=== PATIENT | female | born 1995 | race Caucasian/White ===

== ENCOUNTER 2019-09-22 14:52 | Observation (INO) ==
--- NOTE | 2019-09-22 16:17 | XRay Report ---
RIGHT HAND 3 VIEWS HISTORY: Right hand pain. COMPARISON: None. FINDINGS: There is no fracture or dislocation. Soft tissues are unremarkable. No radiopaque foreign b odies. IMPRESSION: No fractures. ACT 112: Negative or not required by law. Electronically signed by: Lefty Santacruz M.D. 09/22/2019 4:15 PM
[2019-09-22 16:42] LABS: Appearance Urine Cloudy (Clear); Bacteria Urine Automated 2+ (Negative); Bilirubin Urine Negative (Negative); Blood Urine Trace (Negative); Color Urine Yellow; Epithelial Cell Urine Auto >30 /lpf (0-5); Glucose Urine UA Negative (Negative); Ketones Urine Negative (Negative); Leukocyte Esterase Urine 3+ (Negative); Nitrite Urine Negative (Negative); Protein Urine Negative (Negative); Specific Gravity Urine 1.008 (1.000-1.030); Urobilinogen Urine Negative (Negative); WBC Urine Automated >30 /hpf (0-5)
[2019-09-22 17:00] LABS: Basophils # (auto) 0.01 K/uL (0-0.2); Basophils % (auto) 0.1 %; Eosinophils # (auto) 0.01 K/uL (0-0.5); Eosinophils % (auto) 0.1 %; Hematocrit (blood only) 38.4 % (37-47); Immature Granulocytes # (auto) 0.01 K/uL (0.00-0.02); Immature Granulocytes % (auto) 0.1 %; Lymphocytes # (auto) 1.87 K/uL (1.2-3.4); Lymphocytes % (auto) 23.1 %; Mean Corpuscular Hemoglobin 31.2 pg (25-34); Mean Corpuscular Hgb Conc 33.9 g/dL (32-36); Mean Corpuscular Volume 92.1 fL (80-100); Mean Platelet Volume 10.8 fL (7.4-10.4); Monocytes # (auto) 0.61 K/uL (0.11-0.59); Monocytes % (auto) 7.5 %; Neutrophils # (auto) 5.59 K/uL (1.4-6.5); Neutrophils % (auto) 69.1 %; Platelet Count 250 K/uL (130-400); RDW Coefficient of Variation 12.5 % (11.5-14.5); RDW Standard Deviation 42.1 fL (36.4-46.3); Red Blood Count 4.17 M/uL (4.2-5.4)
[2019-09-22 17:01] LABS: Amphetamines+Metham, Urine Neg (Neg); Barbiturates, Urine Neg (Neg); Benzodiazepine, Urine Neg (Neg); Cocaine, Urine Neg (Neg); MDMA (Ecstacy), Urine Neg (Neg); Methadone, Urine Neg (Neg); Opiate, Urine Neg (Neg); Phencyclidine, Urine Neg (Neg)
[2019-09-22 17:14] LABS: BUN Creatinine Ratio 12.1 (10-20); Calcium 9.3 mg/dl (8.5-10.1); Creatinine Clr Calc Pharmacy 81.4 ml/min; Est GFR (African American) 111.9; Est GFR (Non-African American) 96.6; Potassium 3.9 mmol/L (3.5-5.1)
[2019-09-22 17:21] LABS: RBC Urine Automated 0-4 /hpf (0-4)
[2019-09-22 17:25] LABS: Bilirubin,Total 0.5 mg/dl (0.2-1); Globulin 3.9 gm/dl (2.5-4.0); Thyroid Stimulating Hormone 2.15 uIu/ml (0.300-4.500); Total Protein 7.9 gm/dl (6.4-8.2)
[2019-09-22 17:33] LABS: Acetaminophen < 2 ug/ml (10-30); Salicylate < 1.7 mg/dl (2.8-20)
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
[2019-09-22] MEDS ORDERED: cefTRIAXone SODIUM 1,000 MG/50 ML BAG IV STA (17:48)
[2019-09-22] MEDS ORDERED: ACETAMINOPHEN 325 MG TAB PO PRN (19:35)
[2019-09-22] MEDS ORDERED: ONDANSETRON INJ 2 MG/ML 2 ML VIAL IV PRN (19:35)
--- NOTE | 2019-09-22 19:57 | Emergency Department Note ---
Entered by Michele Glasgow acting as a scribe for Alex Mendoza DO History of Present Illness General Chief complaint: Mental Health Evaluation Stated complaint: SUICIDE THOUGHTS OVERDOSE History of Present Illness Maximum Pain Intensity: 0 Patient is a 23-year-old female that presents the ER brought in by parents for depression. Patient notes that she has had suicidal ideations for the past 2 months but they have been worsening over the past week. Patient took 5 Effexor's about 2 hours prior to arrival but notes that she was not trying to kill herself but was trying to make herself not want to kill herself. She notes that she does have too much to live for. She notes the symptoms started when her dog . She has not been eating since Monday. She has not been getting much sleep. The Effexor was long-acting and there were 75 mg each. Mom notes that she may have taken more than 5 as she took a full handful. She denies any chest pain shortness of breath nausea vomiting or diarrhea. She does admit to being tired. She does have a history of anxiety and depression as well. Patient has no pain at this time. No other exacerbating or remitting factors. 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 and A total of 10 systems reviewed and were otherwise negative Physical Exam Vital Signs Vital Signs - 24 hr 09/22/19 15:08 09/22/19 16:40 Temperature 37.0 C Temperature Source Oral Pulse Rate 78 Pulse Rate [Finger] 73 Respiratory Rate 20 20 Blood Pressure 115/87 Blood Pressure [Right Arm] 115/76 Blood Pressure Mean 96 Blood Pressure Mean [Right Arm] 89 Pulse Oximetry 97 97 Oxygen Delivery Method Room Air Room Air Sepsis Recent Fever Within 48 Hours No Sepsis Action Taken by Nursing No Action Required GENERAL: Sitting up in chair, disheveled, no distress, non-toxic EYE EXAM: normal conjunctiva OROPHARYNX: no exudate, no erythema, lips, buccal mucosa, and tongue normal and mucous membranes are moist NECK: supple, no nuchal rigidity, no adenopathy, non-tender LUNGS: Clear to auscultation. Normal chest wall mechanics HEART: no murmurs, S1 normal and S2 normal ABDOMEN: abdomen soft, non-tender, normo-active bowel sounds, no masses, no rebound or guarding. BACK: Back is symmetrical on inspection and there is no deformity, no midline tenderness, no CVA tenderness. SKIN: no rashes and no bruising UPPER EXTREMITIES: upper extremities are grossly normal. LOWER EXTREMITIES: No pitting edema. NEURO EXAM: Normal sensorium, cranial nerves II-XII grossly intact, normal speech, no gross weakness of arms, no gross weakness of legs. PSYCH: The patient admits to SI with no quick plan. She denies HI. She admits to taking an overdose of Effexor to feel better. Course Course ED COURSE: Vital signs were reviewed and showed normal vitals. The patients medical record was reviewed The above diagnostic studies were performed and reviewed. ED treatments and interventions as stated above. 1514: The patient was evaluated in room A08. A complete history and physical examination was performed. 1527: I discussed the patient's case with [facility]. They recommend the patient be monitored for 12 hours. 1651: The patient's blood work was lost. 1713: I discussed the patient's case with the case management manager. 1731: Upon reevaluation, the patient is resting. I discussed my findings with the patient and her family. They understand and agree with the treatment plan. 1733: I reviewed the patient's case with Dr. Viera, [facility] Hospitalist. She will evaluate the patient for further management. Based on the patients age, coexisting illnesses, exam and lab findings the decision to treat as an inpatient was made. The patient remained stable while under my care. The patient will be evaluated for further management. Administered Medications Discontinued Medications Ceftriaxone Sodium (Rocephin) 1,000 mg in 50 mls @ 100 mls/hr IV NOW STA Stop: 09/22/19 18:17 Last Infusion: 09/22/19 18:47 Dose: 0 mls/hr Documented by: [id number] Admin: 09/22/19 18:17 Dose: 100 mls/hr Documented by: [id number] Medical Decision Making Differential Diagnosis Differential diagnoses considered include mood disorder, infection, hypoglycemia, electrolyte abnormalities, cardiac sources, intracerebral event, toxicologic, neurologic, as well as others. Medical Records Attestation: I reviewed the patient's medical records. Home Medications Current Medication List: was personally reviewed by me Laboratory Data Attestation: I reviewed the patient's lab results. Result diagrams: 09/22/19 15:57 09/22/19 15:57 Lab Results 09/22/19 09/22/19 09/22/19 Range/Units 15:25 15:25 15:57 WBC 8.10 (4.8-10.8) K/uL RBC 4.17 L (4.2-5.4) M/uL Hgb 13.0 (12.0-16.0) g/dL Hct 38.4 (37-47) % MCV 92.1 (80-100) fL MCH 31.2 (25-34) pg MCHC 33.9 (32-36) g/dL RDW Std Deviation 42.1 (36.4-46.3) fL RDW Coeff of Devika 12.5 (11.5-14.5) % Plt Count 250 (130-400) K/uL MPV 10.8 H (7.4-10.4) fL Immature Gran % (Auto) 0.1 % Neut % (Auto) 69.1 % Lymph % (Auto) 23.1 % [place] % (Auto) 7.5 % Eos % (Auto) 0.1 % Baso % (Auto) 0.1 % Immature Gran # (Auto) 0.01 (0.00-0.02) K/uL Neut # (Auto) 5.59 (1.4-6.5) K/uL Lymph # (Auto) 1.87 (1.2-3.4) K/uL [place] # (Auto) 0.61 H (0.11-0.59) K/uL Eos # (Auto) 0.01 (0-0.5) K/uL Baso # (Auto) 0.01 (0-0.2) K/uL Sodium (136-145) mmol/L Potassium (3.5-5.1) mmol/L Chloride (98-107) mmol/L Carbon Dioxide (21-32) mmol/L Anion Gap (3-11) BUN (7-18) mg/dl Creatinine (0.6-1.2) mg/dl Est Cr Clr Drug Dosing ml/min Est GFR ( Amer) Est GFR (Non-Af Amer) BUN/Creatinine Ratio (10-20) Glucose (70-99) mg/dl Calcium (8.5-10.1) mg/dl Total Bilirubin (0.2-1) mg/dl AST (15-37) U/L ALT (12-78) U/L Alkaline Phosphatase (45-117) U/L Total Protein (6.4-8.2) gm/dl Albumin (3.4-5.0) gm/dl Globulin (2.5-4.0) gm/dl Albumin/Globulin Ratio (0.9-2) TSH (0.300-4.500) uIu/ml Urine Color Yellow Urine Appearance Cloudy A (Clear) Urine pH 5.0 (4.5-7.5) Ur Specific [place] 1.008 (1.000-1.030) Urine Protein Negative (Negative) Urine Glucose (UA) Negative (Negative) Urine Ketones Negative (Negative) Urine Blood Trace H (Negative) Urine Nitrite Negative (Negative) Urine Bilirubin Negative (Negative) Urine Urobilinogen Negative (Negative) Ur Leukocyte Esterase 3+ H (Negative) Urine WBC (Auto) >30 H (0-5) /hpf Urine RBC (Auto) 0-4 (0-4) /hpf U Hyaline Cast (Auto) 1-5 (0-5) /lpf U Epithel Cells (Auto) >30 H (0-5) /lpf Urine Bacteria (Auto) 2+ H (Negative) Salicylates (2.8-20) mg/dl Urine Opiates Screen Neg (Neg) Ur Methadone, Qual Neg (Neg) Acetaminophen (10-30) ug/ml Urine Barbiturates Neg (Neg) Ur Phencyclidine (PCP) Neg (Neg) U Amphetamin/Meth Scrn Neg (Neg) MDMA (Ecstasy) Screen Neg (Neg) U Benzodiazepines Scrn Neg (Neg) Ur Cocaine Metabolite Neg (Neg) U Marijuana (THC) Screen Neg (Neg) Ethyl Alcohol mg/dL (0-3) mg/dl 09/22/19 09/22/19 09/22/19 Range/Units 15:57 15:57 15:57 WBC (4.8-10.8) K/uL RBC (4.2-5.4) M/uL Hgb (12.0-16.0) g/dL Hct (37-47) % MCV (80-100) fL MCH (25-34) pg MCHC (32-36) g/dL RDW Std Deviation (36.4-46.3) fL RDW Coeff of Devika (11.5-14.5) % Plt Count (130-400) K/uL MPV (7.4-10.4) fL Immature Gran % (Auto) % Neut % (Auto) % Lymph % (Auto) % [place] % (Auto) % Eos % (Auto) % Baso % (Auto) % Immature Gran # (Auto) (0.00-0.02) K/uL Neut # (Auto) (1.4-6.5) K/uL Lymph # (Auto) (1.2-3.4) K/uL [place] # (Auto) (0.11-0.59) K/uL Eos # (Auto) (0-0.5) K/uL Baso # (Auto) (0-0.2) K/uL Sodium 141 (136-145) mmol/L Potassium 3.9 (3.5-5.1) mmol/L Chloride 106 (98-107) mmol/L Carbon Dioxide 27 (21-32) mmol/L Anion Gap 8.0 (3-11) BUN 10 (7-18) mg/dl Creatinine 0.85 (0.6-1.2) mg/dl Est Cr Clr Drug Dosing 81.4 ml/min Est GFR ( Amer) 111.9 Est GFR (Non-Af Amer) 96.6 BUN/Creatinine Ratio 12.1 (10-20) Glucose 84 (70-99) mg/dl Calcium 9.3 (8.5-10.1) mg/dl Total Bilirubin 0.5 (0.2-1) mg/dl AST 17 (15-37) U/L ALT 25 (12-78) U/L Alkaline Phosphatase 66 (45-117) U/L Total Protein 7.9 (6.4-8.2) gm/dl Albumin 4.0 (3.4-5.0) gm/dl Globulin 3.9 (2.5-4.0) gm/dl Albumin/Globulin Ratio 1.0 (0.9-2) TSH 2.150 (0.300-4.500) uIu/ml Urine Color Urine Appearance (Clear) Urine pH (4.5-7.5) Ur Specific [place] (1.000-1.030) Urine Protein (Negative) Urine Glucose (UA) (Negative) Urine Ketones (Negative) Urine Blood (Negative) Urine Nitrite (Negative) Urine Bilirubin (Negative) Urine Urobilinogen (Negative) Ur Leukocyte Esterase (Negative) Urine WBC (Auto) (0-5) /hpf Urine RBC (Auto) (0-4) /hpf U Hyaline Cast (Auto) (0-5) /lpf U Epithel Cells (Auto) (0-5) /lpf Urine Bacteria (Auto) (Negative) Salicylates < 1.7 L (2.8-20) mg/dl Urine Opiates Screen (Neg) Ur Methadone, Qual (Neg) Acetaminophen < 2 L (10-30) ug/ml Urine Barbiturates (Neg) Ur Phencyclidine (PCP) (Neg) U Amphetamin/Meth Scrn (Neg) MDMA (Ecstasy) Screen (Neg) U Benzodiazepines Scrn (Neg) Ur Cocaine Metabolite (Neg) U Marijuana (THC) Screen (Neg) Ethyl Alcohol mg/dL < 3.0 (0-3) mg/dl Imaging Data Radiologist's Impression: Radiology results as stated below per my review and the radiologist's interpretation: RIGHT HAND 3 VIEWS HISTORY: Right hand pain. COMPARISON: None. FINDINGS: There is no fracture or dislocation. Soft tissues are unremarkable. No radiopaque foreign bodies. IMPRESSION: No fractures. ACT 112: Negative or not required by law. Electronically signed by: Lefty Santacruz M.D. 09/22/2019 4:15 PM ECG Data Attestation: I personally reviewed and interpreted this ECG as follows: Indication: + toxicologic Rate (beats per minute): 74 Rhythm: + normal sinus ECG Intervals/blocks: + Normal QRS, + Normal QT, + Normal VA and + Normal QT-c ECG ST segments: + T-wave inversions (Septal) Blood Pressure Blood Pressure Findings: Normal blood pressure Blood Pressure Disposition: did not require urgent referral MDM Narrative Patient is a 23-year-old female who presents the ER as she took an intentional overdose but notes that she was not trying to kill her self with this. She has had suicidal ideations which have been worsening over the past week. IV was est ablished blood work was obtained. Case was discussed with [place] [facility]. Labs show no significant leukocytosis or anemia. BMP along with LFTs bilirubin and lipase was unremarkable. TSH was normal. UA was contaminated with multiple epithelial cells. was negative. Tox was negative. Alcohol was negative. EKG was nondiagnostic. X-ray of the head was negative. Patient was updated bedside. Patient was discussed with peds per poison they recommended observation due to the extended release. Family was updated and discussed with hospitalist for observation. Impression & Plan Intentional overdose of drug in tablet form, Mood disorder, Suicidal ideation Discharge Plan Visit Data *Final* Discharge Date/Time: 09/22/19 18:41 Chief Complaint: Mental Health Evaluation Stated Complaint: SUICIDE THOUGHTS OVERDOSE ED Provider: Alex Mendoza Discharge Problem: Intentional overdose of drug in tablet form, Mood disorder, Suicidal ideation Patient Disposition: Being Evaluated by Hospitalist Discharge Instructions Interventions: ED Discharge Assessment Last Done: 09/22/19 18:41 The scribe's documentation has been prepared under my direction and personally reviewed by me in its entirety. I confirm that the note above accurately reflects all work, treatment, procedures, and medical decision making performed by me.
[2019-09-22] MEDS: SODIUM CHLORIDE 0.9% 1000ML 1,000 ML IV SCH (20:13)
--- NOTE | 2019-09-22 22:35 | Electrocardiogram Report ---
Test Reason : Blood Pressure : / mmHG Vent. Rate : 064 BPM Atrial Rate : 064 BPM P-R Int : 124 ms QRS Dur : 082 ms QT Int : 390 ms P-R-T Axes : 058 084 062 degrees QTc Int : 402 ms Normal sinus rhythm Normal ECG No previous ECGs available Confirmed by Maximo Aldana ([id number]) on 09/22/2019 10:35:52 PM Referred By: REFERRED SELF Confirmed By:Maximo Aldana
[2019-09-23] MEDS: SODIUM CHLORIDE 0.9% 1000ML 1,000 ML IV SCH ×2 (04:15→12:19)
[2019-09-23 07:21] LABS: Albumin Level 3.2 gm/dl (3.4-5.0); BUN Creatinine Ratio 10.5 (10-20); Calcium 8.2 mg/dl (8.5-10.1); Est GFR (African American) 120.4; Est GFR (Non-African American) 103.9; Potassium 3.5 mmol/L (3.5-5.1)
[2019-09-23 07:27] LABS: Bilirubin,Total 0.5 mg/dl (0.2-1); Globulin 3.1 gm/dl (2.5-4.0); Total Protein 6.3 gm/dl (6.4-8.2)
--- NOTE | 2019-09-23 13:01 | Hospitalist Progress Note ---
Date of Service September 23, 2019 Assessment & Plan (1) Suicidal behavior: Continue admit to tele Pt admits to taking 5 tablets of Effexor, she has a full bottle of this available as she just filled the Rx this past week. She denies suicidal or homicidal ideations. 1:1 observation, safe tray, suicide precautions Psych consult pending Hold Effexor, consider switching over to different agent pending psych consult. Pt reports this medication worked at 75 mg initially but then stopped working well about 1 month ago. (2) Bipolar 1 disorder: Pt with manic episodes as described in HPI with impulsive behavior, cleaning, buying items, not sleeping, irritability accompanied by mood swings to feeling depressed moods, so likely has undiagnosed Bipolar disorder. Pt mother at bedside reports that she has Bipolar, and she recognizes similar traits in the patient. Has tried multiple antidepressants without effect in the past, never on a mood stabilizer, which would likely benefit her. Would consider Latuda if insurance ok and to avoid weight gain as a sd effect, or seroquel would also be another option for the patient with metabolic panel workup routinely. (3) UTI (urinary tract infection): UA appears dirty, pt without dysuria, increased frequency. Will treat with Rocephin IV now (4) DVT prophylaxis: Ambulatory CODE: FULL Dispo: We will discharge home as soon as patient is cleared by psychiatrist. Subjective Patient seen and examined at the bedside. She reports feeling better and denies any suicidal ideation. Patient states that she took only 5 pills of Effexor 75 mg each and she is stating that she did not have any intention to kill herself and in fact she only wanted to sleep. Patient reports that on occasion she gets very irritable and that today she was feeling the same way even though she did not have any reason for it. Patient was on the phone with her mom but she did not want me to speak to her. Patient appetite is the same as before. Patient states that she eats a little bit at the time but more often. Patient denies any fever, chills, chest pain, shortness of breath, abdominal pain, frequency, urgency. Review of Systems Review of Systems: All systems reviewed & are unremarkable except as noted in HPI & below Physical Exam Constitutional: WD/WN, vitals as above well developed Eyes: PERRL, conjunctivae normal, anicteric sclerae ENMT: external ear and nose normal, oropharynx normal Neck: trachea midline, no thyromegaly Respiratory: normal respiratory effort, lungs clear to auscultation Cardiovascular: RRR, no murmur, no edema Gastrointestinal (Abdomen): normal bowel sounds, soft, nontender, no hepatosplenomegaly Musculoskeletal: no cyanosis or clubbing, extremities motor strength 5/5 Skin: no rashes, warm and dry Neurologic: patellar DTR's 2+ bilat, sensation intact Psychiatric: Suicidal Thoughts: denies suicidal thoughts Homicidal Thoughts: denies homicidal thoughts Insight: + limited insight Lymphatic: no cervical or axillary lymphadenopathy Results & Data ([facility]) Vital Signs (Past 12 Hours) Vital Signs Temp Pulse Pulse Resp BP Pulse Ox 09/23/19 07:45 71 09/23/19 07:00 36.6 C 78 20 116/78 98 09/23/19 03:59 36.7 C 80 18 100/65 98 PG Care Time/CCT Total # of Minutes Spent Total Time Spent with Patient: Total time spent is greater than 50% in coordination of care (as documented) at patient's floor/unit and/or counseling patient: Coding Level of Care Code 17943 Subseq Hosp Care Lvl 3 Diagnoses Suicidal behavior R46.89 Bipolar 1 disorder F31.9 UTI (urinary tract infection) N39.0 DVT prophylaxis Z29.9
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
--- NOTE | 2019-09-23 16:57 | Hospitalist Progress Note ---
Date of Service September 23, 2019 Assessment & Plan (1) Suicidal behavior: Patient is eager to go home . Patient is not a danger to herself . Discussed with psychiatry and they recommended not to continue Effexor. Patient will need to follow-up with Fabiola Romero or Gamaliel. (2) Bipolar 1 disorder: Pt with manic episodes as described in HPI with impulsive behavior, cleaning, buying items, not sleeping, irritability accompanied by mood swings to feeling depressed moods, so likely has undiagnosed Bipolar disorder. Pt mother at bedside reports that she has Bipolar, and she recognizes similar traits in the patient. Has tried multiple antidepressants without effect in the past, never on a mood stabilizer, which would likely benefit her. Would consider Latuda if insurance ok and to avoid weight gain as a sd effect, or seroquel would also be another option for the patient with metabolic panel workup routinely. (3) UTI (urinary tract infection): UA appears dirty, pt without dysuria, increased frequency. Patient treated with Rocephin IV for uncomplicated UTI. We will continue with 3 more days of cefdinir for uncomplicated UTI. (4) DVT prophylaxis: Ambulatory CODE: FULL Dispo: Patient is cleared by psychiatrist Dr. Keri Qiu to be discharged home. Subjective Patient seen and examined at the bedside. She reports feeling better and denies any suicidal ideation. Patient states that she took only 5 pills of Effexor 75 mg each and she is stating that she did not have any intention to kill herself and in fact she only wanted to sleep. Patient reports that on occasion she gets very irritable and that today she was feeling the same way even though she did not have any reason for it. Patient was on the phone with her mom but she did not want me to speak to her. Patient appetite is the same as before. Patient states that she eats a little bit at the time but more often. Patient denies any fever, chills, chest pain, shortness of breath, abdominal pain, frequency, urgency. Review of Systems Review of Systems: All systems reviewed & are unremarkable except as noted in HPI & below Physical Exam Constitutional: WD/WN, vitals as above well developed Eyes: PERRL, conjunctivae normal, anicteric sclerae ENMT: external ear and nose normal, oropharynx normal Neck: trachea midline, no thyromegaly Respiratory: normal respiratory effort, lungs clear to auscultation Cardiovascular: RRR, no murmur, no edema Gastrointestinal (Abdomen): normal bowel sounds, soft, nontender, no hepatosplenomegaly Musculoskeletal: no cyanosis or clubbing, extremities motor strength 5/5 Skin: no rashes, warm and dry Neurologic: patellar DTR's 2+ bilat, sensation intact Psychiatric: Suicidal Thoughts: denies suicidal thoughts Homicidal Thoughts: denies homicidal thoughts Insight: + limited insight Lymphatic: no cervical or axillary lymphadenopathy Results & Data ([facility]) Vital Signs (Past 12 Hours) Vital Signs Temp Pulse Pulse Resp BP Pulse Ox 09/23/19 15:27 94 H 09/23/19 14:54 36.6 C 76 16 101/66 98 09/23/19 07:45 71 09/23/19 07:00 36.6 C 78 20 116/78 98 PG Care Time/CCT Total # of Minutes Spent Total Time Spent with Patient: Total time spent is greater than 50% in coordination of care (as documented) at patient's floor/unit and/or counseling patient: Coding Level of Care Code 79026 Subseq Hosp Care Lvl 3 Diagnoses Suicidal behavior R46.89 Bipolar 1 disorder F31.9 UTI (urinary tract infection) N39.0 DVT prophylaxis Z29.9
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
== END 2019-09-23 17:10 | disposition home or self-care (01) ==
LOC: ED 14:52 → SUATTDRO 17:48 → INTOOBSV 17:48 → 2W 17:48